=== PATIENT | female | born 1940 | race Asian ===

== ENCOUNTER 2016-06-14 10:13 | Inpatient (IN) | payer OTHER ==
[~2016-06-14] VITALS: Ht 152.4 cm; Wt 58.6 kg
[~2016-06-14 10:13] MED LIST: FELO5TAB PO; IBUP-1174; SIMV-8 PO
[2016-06-14] MEDS ORDERED: cloNIDine HCL 0.1 MG TAB PO ONE (10:45)
[2016-06-14 11:36] LABS: Basophils # (auto) 0 uL; Basophils % (auto) 0.3 % (0.0-2.0); DEFINITIVE VIEW TRANSMISSION; Eosinophils # (auto) 0.1 uL; Hematocrit 49.9 % (36.0-46.0); Hemoglobin 15.8 g/dL (12.2-16.2); Lymphocytes # (auto) 2.1 uL; Lymphocytes % (auto) 22.8 % (10.0-50.0); Mean Corpuscular Hemoglobin 26.3 pg (28.0-32.0); Mean Corpuscular Hgb Conc. 31.6 g/dL (32.0-36.0); Mean Corpuscular Volume 83.2 fL (80.0-100.0); Mean Platelet Volume 7.8 fL (7.4-10.4); Monocytes # (auto) 0.5 uL; Monocytes % (auto) 5.8 % (0.0-12.0); Neutrophils # (auto) 6.5 uL; Neutrophils % (auto) 70.1 % (37.0-80.0); Platelet Count (auto) 258 10^3/uL (140-450); Red Cell Distribution Width 13.7 % (11.6-16.0); White Blood Cell 9.2 10^3/uL (4.4-10.8)
[2016-06-14 11:57] LABS: Albumin 4.2 g/dL (3.4-5.0); BUN/Creatinine Ratio 14.3; Bilirubin, Total 0.5 mg/dL (0.2-1.0); Calcium 9.8 mg/dL (8.5-10.1); Magnesium 2.5 mg/dL (1.6-2.6); Potassium 3.6 mmol/L (3.5-5.1); Total Protein 8.7 g/dL (6.4-8.2)
[2016-06-14 11:59] LABS: INR 0.96 (0.9-1.15); Partial Thromboplastin Time 28.1 sec (22.64-33.71); Prothrombin Time 9.9 sec (9.37-12.3)
[2016-06-14 12:04] LABS: B-Type Natriuretic Peptide 97.81 pg/mL (0-100)
[2016-06-14 12:14] LABS: Temperature: 22.5 C (20.0-25.0)
[2016-06-14] MEDS ORDERED: PROMETHAZINE HCL 25 MG/ML 1ML IV PRN (14:00)
[2016-06-14] MEDS ORDERED: LACTULOSE 20Gm/30ML SOLN PO PRN (14:00)
[2016-06-14] MEDS ORDERED: ACETAMINOPHEN 500 MG TAB PO PRN (14:00)
[2016-06-14] MEDS ORDERED: ZOLPIDEM TARTRATE 5 MG TAB PO PRN (14:00)
[2016-06-14] MEDS ORDERED: NITROGLYCERIN 0.4 MG SL TAB SL PRN (14:00)
[2016-06-14] MEDS ORDERED: HYDROcodone-ACET 5/325MG TAB PO PRN (14:00)
[2016-06-14] MEDS ORDERED: MORPHINE SULF INJ 2 MG/ML SYRINGE 1ML IV PRN ×2 (14:00)
[2016-06-14] MEDS: ASPirin 81 mg TAB PO SCH (14:01)
[2016-06-14] MEDS: SODIUM CHLORIDE 0.9% 1,000 ML IV SCH (14:01)
[2016-06-14] MEDS: ENOXAPARIN SOD 40 MG/0.4 ML SYRINGE SC SCH (14:04)
[2016-06-14 15:06] LABS: Temperature: 22.5 C (20.0-25.0)
[2016-06-14 17:26] VITALS: BP 145/54
[2016-06-14 22:00] VITALS: BP 129/47
[2016-06-14] MEDS: PRAVASTATIN SODIUM 20 MG TAB PO SCH (22:15)
[2016-06-15 04:11] LABS: Urine Bilirubin Negative (Negative); Urine Blood TRACE /uL (Negative); Urine Color Yellow (Yellow); Urine Glucose Normal (Normal); Urine Ketone Negative (Negative); Urine Mucus FEW (None Seen); Urine Nitrite Negative (Negative); Urine RBC 1 /hpf (0 - 4); Urine Squamous Epithelial Cell FEW /hpf (<5); Urine Urobilinogen Normal (Negative); Urine pH 5.5 (5.0-8.0)
[2016-06-15 04:41] VITALS: BP 131/69
[2016-06-15] MEDS: SODIUM CHLORIDE 0.9% 1,000 ML IV SCH (04:48)
[2016-06-15 05:39] LABS: Cholesterol 160 mg/dL (<200); HDL Cholesterol 70 mg/dL (40-59); LDL Cholesterol 88 mg/dL (<100); Triglycerides 121 mg/dL (<150)
[2016-06-15 09:00] VITALS: BP 152/95
[2016-06-15] MEDS: ASPirin 81 mg TAB PO SCH (09:25)
[2016-06-15] MEDS: ENOXAPARIN SOD 40 MG/0.4 ML SYRINGE SC SCH (09:26)
[2016-06-15] MEDS: amLODIPine BESYLATE 5 MG TAB PO SCH (09:41)
[2016-06-15 13:00] VITALS: BP 143/60
[2016-06-15 15:00] VITALS: BP 160/86
[2016-06-15] MEDS ORDERED: cefTRIAXone 1GM/50ML D5W 50 ML IV ONE (16:45)
[2016-06-15 22:00] VITALS: BP 184/79
[2016-06-15] MEDS: PRAVASTATIN SODIUM 20 MG TAB PO SCH (22:29)
[2016-06-16] MEDS: SODIUM CHLORIDE 0.9% 1,000 ML IV SCH (03:21)
[2016-06-16 05:00] VITALS: BP 150/81
[2016-06-16] MEDS: LEVOTHYROXINE SODIUM 25 MCG TAB PO SCH ×2 (06:34→06:54)
[2016-06-16 09:00] VITALS: BP 137/65
[2016-06-16] MEDS ORDERED: cefTRIAXone 1GM/50ML D5W 50 ML IV SCH (09:00)
[2016-06-16] MEDS: amLODIPine BESYLATE 5 MG TAB PO SCH (11:01)
[2016-06-16] MEDS: ASPirin 81 mg TAB PO SCH (11:01)
[2016-06-16] MEDS: ENOXAPARIN SOD 40 MG/0.4 ML SYRINGE SC SCH (11:08)
[2016-06-16] MEDS ORDERED: OMEP20TA PO (11:49)
[2016-06-16] MEDS ORDERED: NITR-39 PO (11:49)
[2016-06-16 13:00] VITALS: BP 145/75
[2016-06-16 13:29] VITALS: BP 137/65
[2016-06-17 09:00] VITALS: BP 130/82
[2016-06-17 13:00] VITALS: BP 133/92
== END 2016-06-16 14:00 | disposition home or self-care (01) | DRG 690 ==
LOC: EDBD 10:13 → ER 10:17 → TELE 10:18 → TELE-EAST 18:06
PROVIDERS: ADMIT Internal Medicine; ATTEND Family Medicine
DX: N39.0 Urinary tract infection, site not specified (principal); K21.9 Gastro-esophageal reflux disease without esophagitis; R29.700 NIHSS score 0; E78.00 Pure hypercholesterolemia, unspecified; I67.2 Cerebral atherosclerosis; I10 Essential (primary) hypertension; I15.9 Secondary hypertension, unspecified; E78.5 Hyperlipidemia, unspecified; E03.9 Hypothyroidism, unspecified; Z88.8 Allergy status to other drugs, medicaments and biological substances
CPT/HCPCS: 36415; 70450; 71020; 80053; 80061; 81001; 82550; 82607; 82746; 83735; 83880; 84443; 84484; 85025; 85379; 85610; 85652; 85730; 87086; 93005; 93306; 93886; 99291; G0434; J0696

== ENCOUNTER 2017-12-01 09:16 | Emergency (ER) | payer OTHER ==
[~2017-12-01] VITALS: Ht 154.9 cm; Wt 63.5 kg
[~2017-12-01 09:16] MED LIST changes: +NITR-39 PO; +OMEP20TA PO
[2017-12-01 09:27] VITALS: BP 157/73
== END 2017-12-01 13:27 | disposition home or self-care (01) ==
LOC: ER 09:16
DX: S83.92XA Sprain of unspecified site of left knee, initial encounter (principal); Z76.0 Encounter for issue of repeat prescription; X58.XXXA Exposure to other specified factors, initial encounter; Y93.89 Activity, other specified; Y92.89 Other specified places as the place of occurrence of the external cause; Y99.8 Other external cause status
CPT/HCPCS: 73562

== ENCOUNTER 2017-12-10 13:31 | Emergency (ER) | payer OTHER ==
[~2017-12-10] VITALS: Ht 154.9 cm; Wt 63.5 kg
[2017-12-10 14:50] VITALS: BP 113/68
[2017-12-10] MEDS ORDERED: KETOROLAC TROMETH 60MG/2ML VIAL IM ONE (15:15)
== END 2017-12-10 15:47 | disposition home or self-care (01) ==
LOC: ER 13:31
DX: M17.12 Unilateral primary osteoarthritis, left knee (principal); E78.5 Hyperlipidemia, unspecified; I10 Essential (primary) hypertension; E07.89 Other specified disorders of thyroid; Z88.1 Allergy status to other antibiotic agents; Z88.8 Allergy status to other drugs, medicaments and biological substances
CPT/HCPCS: 96372; 99283; J1885